=== PATIENT | male | born 1955 | race Caucasian/White ===

== ENCOUNTER 2024-05-20 21:55 | Inpatient (IN) | payer MEDICARE, OTHER ==
[~2024-05-20] VITALS: Ht 182.9 cm; Wt 100.7 kg
[2024-05-20] MEDS ORDERED: EMPA25TA PO (22:19)
[2024-05-20] MEDS ORDERED: PANT20TA2 PO (22:19)
[2024-05-20] MEDS ORDERED: SEMA1PEN SQ (22:19)
[2024-05-20] MEDS ORDERED: ASPI81TA31 PO (22:19)
[2024-05-20] MEDS ORDERED: ICOS1CAP PO (22:19)
[2024-05-20] MEDS ORDERED: LINA5TAB PO (22:19)
[2024-05-20] MEDS ORDERED: SIMV10TA2 PO (22:19)
[2024-05-20] MEDS ORDERED: AMLO-212 PO (22:19)
[2024-05-20] MEDS ORDERED: CHOL200074 PO (22:19)
[2024-05-20] MEDS ORDERED: DICL100G31 TP (22:19)
[2024-05-20] MEDS ORDERED: OLME20TA13 PO (22:19)
[2024-05-20] MEDS ORDERED: HYDR-3980 PO (22:19)
[2024-05-20] MEDS ORDERED: ENOX40DI9 SQ (22:19)
[2024-05-20] MEDS ORDERED: CLOB15CR10 TP (22:19)
[2024-05-20] MEDS ORDERED: IBUP-1955 PO (22:19)
[2024-05-20 22:27] VITALS: BP 137/72; TEMP 98.1; O2SAT 99
[2024-05-20 22:43] VITALS: BP 137/72; TEMP 98.1; O2SAT 99
[2024-05-21] MEDS ORDERED: Medication Not On Formulary EA (Pantoprazole Sodium (Protonix) 1 TAB) PO SCH (00:15)
[2024-05-21] MEDS: HYDROCODONE/APAP 10-325 MG TABLET PO PRN (02:04)
[2024-05-21] MEDS: PANTOPRAZOLE SODIUM 40 MG TABLET.DR PO SCH (06:40)
[2024-05-21 06:54] VITALS: BP 121/68; TEMP 97.8; O2SAT 97
[2024-05-21 08:05] VITALS: BP 122/66; TEMP 98; O2SAT 18
[2024-05-21 08:06] LABS: BASOPHILS % (AUTO) 0.2 % (0.0-2.0); EOSINOPHILS % (AUTO) 0.1 % (0.0-7.0); HEMATOCRIT 35.7 % (36.7-47.1); HEMOGLOBIN 12.4 g/dL (12.5-16.3); LYMPHOCYTES % (AUTO) 25.3 % (20.5-51.5); MEAN CORPUSCULAR HEMOGLOBIN 31.2 uug (23.8-33.4); MEAN CORPUSCULAR HGB CONC 35 g/dL (32.5-36.3); MEAN CORPUSCULAR VOLUME 89.9 fL (73.0-96.2); MONOCYTES % (AUTO) 13.2 % (0.0-11.0); NEUTROPHILS # (AUTO) 4.8 K/uL (1.8-8.9); NEUTROPHILS % (AUTO) 61.2 % (38.5-71.5); PLATELET COUNT (AUTO) 169 K/uL (152-348); RED BLOOD CELL COUNT(AUTO) 3.97 MIL/uL (4.06-5.63); RED CELL DISTRIBUTION WIDTH 13.1 % (12.1-16.2); WHITE BLOOD COUNT (AUTO) 7.8 K/uL (3.6-10.2)
[2024-05-21 08:18] LABS: CALCIUM 7.9 mg/dL (8.5-10.1); CREATININE 1.2 mg/dL (0.6-1.3)
[2024-05-21 08:33] LABS: DIFFERENTIAL COMMENT 1
[2024-05-21] MEDS ORDERED: Icosapent Ethyl (Vascepa) 1 GM) PO SCH (09:00)
[2024-05-21] MEDS ORDERED: Medication Not On Formulary EA (Cholecalciferol (Vitamin D3) (Vitamin D3) 1 CAP) PO SCH (09:00)
[2024-05-21] MEDS ORDERED: Medication Not On Formulary EA (Empagliflozin (Jardiance) 25 MG) PO SCH (09:00)
[2024-05-21] MEDS ORDERED: CLOBETASOL PROPIONATE 0.05% CREAM 15 GM TUBE TP SCH ×2 (09:00)
[2024-05-21] MEDS ORDERED: EMPAGLIFLOZIN 10 MG TABLET PO SCH ×2 (09:00)
[2024-05-21] MEDS: CHOLECALCIFEROL 1,000 UNIT TABLET PO SCH (09:21)
[2024-05-21] MEDS: OMEGA-3 FATTY ACIDS/FISH OIL CAPSULE PO SCH (09:21)
[2024-05-21] MEDS: ASPIRIN 81 MG TAB.CHEW PO SCH (09:21)
[2024-05-21] MEDS: LINAGLIPTIN 5 MG TABLET PO SCH (09:22)
[2024-05-21] MEDS: OXYCODONE HCL 5 MG TABLET PO PRN (09:22)
[2024-05-21] MEDS: LOSARTAN POTASSIUM 50 MG TABLET PO SCH (09:24)
[2024-05-21] MEDS: AMLODIPINE 5 MG TABLET PO SCH (09:24)
[2024-05-21] MEDS: ENOXAPARIN SODIUM 40 MG/0.4 ML DISP.SYRIN SQ SCH (09:28)
[2024-05-21] MEDS: JARDIANCE 25 MG PO SCH (12:44)
[2024-05-21 15:43] VITALS: TEMP 98.5
[2024-05-21] MEDS: VASCEPA 1 GM PO SCH (17:10)
[2024-05-21] MEDS: SIMVASTATIN 10 MG TABLET PO SCH (20:33)
[2024-05-21] MEDS: NORMAL SALINE NASAL 45 ML BOTTLE NS PRN (20:34)
[2024-05-21 21:33] VITALS: BP 105/61; TEMP 98.8; O2SAT 15
[2024-05-22 07:39] VITALS: BP 105/52; TEMP 98.6; O2SAT 15
[2024-05-22 11:22] VITALS: BP 109/66; TEMP 97.4; O2SAT 93
[2024-05-22] MEDS ORDERED: DEXTROSE 50% 50 ML DISP.SYRIN IV PRN (17:15)
[2024-05-22 19:25] VITALS: BP 106/66; TEMP 97.4; O2SAT 93
[2024-05-22 20:31] VITALS: BP 116/68; TEMP 98.1; O2SAT 92
[2024-05-22] MEDS: BLOOD SUGAR DIAGNOSTIC 1 EACH STRIP VI SCH (21:12)
[2024-05-22] MEDS: INSULIN REGULAR, HUMAN 1000 UNIT/10 ML VIAL SQ PRN (21:16)
[2024-05-22] MEDS: IBUPROFEN 600 MG TABLET PO PRN (23:09)
[2024-05-23 05:26] VITALS: BP 106/61; TEMP 97.7; O2SAT 90
[2024-05-23 08:00] VITALS: BP 104/65; TEMP 97.6; O2SAT 99
[2024-05-23 16:02] VITALS: BP 105/63; TEMP 97.6; O2SAT 95
[2024-05-23] MEDS: GLUCERNA SHAKE 237 ML CAN PO SCH (16:50)
[2024-05-23 20:41] VITALS: BP 105/55; TEMP 98.3; O2SAT 95
[2024-05-23] MEDS: MORPHINE SULFATE SR 15 MG TABLET.SA PO SCH (21:38)
[2024-05-24 06:48] VITALS: BP 106/60; TEMP 98.4; O2SAT 90
[2024-05-24] MEDS ORDERED: GLUCERNA SHAKE 237 ML CAN PO SCH (08:00)
[2024-05-24 08:07] VITALS: BP 103/57; TEMP 98; O2SAT 97
[2024-05-24] MEDS: GLUCERNA SHAKE 237 ML CAN PO SCH (08:19)
[2024-05-24 14:42] LABS: BASOPHILS % (AUTO) 0.2 % (0.0-2.0); DIFFERENTIAL COMMENT 0; EOSINOPHILS # (AUTO) 0.1 K/uL (0.0-0.7); EOSINOPHILS % (AUTO) 1.1 % (0.0-7.0); HEMATOCRIT 35.9 % (36.7-47.1); HEMOGLOBIN 12.3 g/dL (12.5-16.3); LYMPHOCYTES # (AUTO) 1.5 K/uL (0.8-4.8); LYMPHOCYTES % (AUTO) 18.9 % (20.5-51.5); MEAN CORPUSCULAR HEMOGLOBIN 30.6 uug (23.8-33.4); MEAN CORPUSCULAR HGB CONC 34 g/dL (32.5-36.3); MEAN CORPUSCULAR VOLUME 89.1 fL (73.0-96.2); MONOCYTES # (AUTO) 0.7 K/uL (0.1-1.30); NEUTROPHILS # (AUTO) 5.4 K/uL (1.8-8.9); NEUTROPHILS % (AUTO) 70.8 % (38.5-71.5); PLATELET COUNT (AUTO) 251 K/uL (152-348); RED BLOOD CELL COUNT(AUTO) 4.02 MIL/uL (4.06-5.63); RED CELL DISTRIBUTION WIDTH 13.1 % (12.1-16.2); WHITE BLOOD COUNT (AUTO) 7.7 K/uL (3.6-10.2)
[2024-05-24 14:57] LABS: ALBUMIN 2.6 g/dL (3.4-5.0); BILIRUBIN,TOTAL 0.8 mg/dL (0.2-1.0); CREATININE 1.1 mg/dL (0.6-1.3); POTASSIUM 4.2 mmol/L (3.5-5.1); TOTAL PROTEIN, SERUM 6.8 g/dL (6.4-8.2)
[2024-05-24 15:04] LABS: CALCIUM 8.2 mg/dL (8.5-10.1)
[2024-05-24 15:43] VITALS: BP 99/44; TEMP 97.2; O2SAT 97
[2024-05-24] MEDS: AMOXICILLIN-CLAVUL 875-125MG TABLET PO SCH (17:01)
[2024-05-24 20:33] VITALS: BP 101/56; TEMP 97.4; O2SAT 93
[2024-05-25 07:04] VITALS: BP 105/65; TEMP 97.7; O2SAT 95
[2024-05-25 07:44] VITALS: BP 112/62; TEMP 97.7; O2SAT 97
[2024-05-25] MEDS: LACTULOSE 20 G/30 ML LIQUID UDC PO SCH (08:20)
[2024-05-25] MEDS ORDERED: NALOXONE HCL 0.4 MG/ML AMPUL IV PRN (12:00)
[2024-05-25 15:27] VITALS: BP 134/56; TEMP 97.2; O2SAT 97
[2024-05-25 21:10] VITALS: BP 104/54; TEMP 98; O2SAT 91
[2024-05-25] MEDS: OXYCODONE HCL 10 MG TAB.SR.12H PO SCH (21:48)
[2024-05-25 22:47] VITALS: O2SAT 94
[2024-05-26 05:06] VITALS: BP 102/56; TEMP 97.7; O2SAT 92
[2024-05-26 08:00] VITALS: BP 109/62; TEMP 98.1; O2SAT 97
[2024-05-26 16:02] VITALS: BP 118/65; TEMP 97.9; O2SAT 96
[2024-05-26 20:06] VITALS: BP 108/56; TEMP 98.2; O2SAT 95
[2024-05-27 06:09] VITALS: BP 107/60; TEMP 97.6; O2SAT 96
[2024-05-27 08:00] VITALS: BP 113/57; TEMP 97.7; O2SAT 95
[2024-05-27 16:00] VITALS: BP 119/66; TEMP 97.8; O2SAT 94
[2024-05-27] MEDS: LINAGLIPTIN 5 MG TABLET PO SCH (17:02)
[2024-05-27 20:30] VITALS: BP 114/64; TEMP 98.1; O2SAT 93
[2024-05-28 06:59] VITALS: BP 136/77; TEMP 98.1; O2SAT 94
[2024-05-28 07:39] VITALS: BP 101/53; TEMP 97.4; O2SAT 96
[2024-05-28 16:00] VITALS: BP 112/57; TEMP 97.7; O2SAT 97
[2024-05-28 20:16] VITALS: BP 110/65; TEMP 98.3; O2SAT 94
[2024-05-29 07:05] VITALS: BP 122/67; TEMP 97.8; O2SAT 94
[2024-05-29 08:00] VITALS: BP 120/66; TEMP 98.9; O2SAT 94
[2024-05-29] MEDS ORDERED: SENNOSIDES 1 TABLET PO PRN (19:15)
[2024-05-29 20:00] VITALS: BP 106/60; TEMP 98; O2SAT 95
[2024-05-30] MEDS: IBUPROFEN 800 MG TABLET PO PRN (00:52)
[2024-05-30 06:58] VITALS: BP 121/60; TEMP 97.4; O2SAT 94
[2024-05-30 08:21] LABS: BASOPHILS % (AUTO) 0.3 % (0.0-2.0); EOSINOPHILS # (AUTO) 0.2 K/uL (0.0-0.7); EOSINOPHILS % (AUTO) 2.3 % (0.0-7.0); HEMATOCRIT 35.5 % (36.7-47.1); LYMPHOCYTES # (AUTO) 2.1 K/uL (0.8-4.8); LYMPHOCYTES % (AUTO) 24.5 % (20.5-51.5); MEAN CORPUSCULAR HEMOGLOBIN 30.3 uug (23.8-33.4); MEAN CORPUSCULAR HGB CONC 34 g/dL (32.5-36.3); MEAN CORPUSCULAR VOLUME 90.1 fL (73.0-96.2); MONOCYTES # (AUTO) 0.5 K/uL (0.1-1.30); MONOCYTES % (AUTO) 5.5 % (0.0-11.0); NEUTROPHILS # (AUTO) 5.7 K/uL (1.8-8.9); NEUTROPHILS % (AUTO) 67.4 % (38.5-71.5); PLATELET COUNT (AUTO) 402 K/uL (152-348); RED BLOOD CELL COUNT(AUTO) 3.94 MIL/uL (4.06-5.63); RED CELL DISTRIBUTION WIDTH 13.2 % (12.1-16.2); WHITE BLOOD COUNT (AUTO) 8.4 K/uL (3.6-10.2)
[2024-05-30 08:34] LABS: DIFFERENTIAL COMMENT 1
[2024-05-30 08:46] VITALS: BP 118/61; TEMP 97.6; O2SAT 95
[2024-05-30 09:03] LABS: ALBUMIN 2.6 g/dL (3.4-5.0); BILIRUBIN,TOTAL 0.5 mg/dL (0.2-1.0); CALCIUM 8.8 mg/dL (8.5-10.1); MAGNESIUM 2.4 mg/dL (1.8-2.4); PHOSPHOROUS 3.7 mg/dL (2.5-4.9); POTASSIUM 4.3 mmol/L (3.5-5.1); TOTAL PROTEIN, SERUM 6.7 g/dL (6.4-8.2)
[2024-05-30 10:06] LABS: THYROID STIMULATING HORMONE 1.643 mIU/mL (0.358-3.740)
[2024-05-30] MEDS ORDERED: DEXTROSE 50% 50 ML DISP.SYRIN IV PRN (17:00)
[2024-05-30 19:13] VITALS: BP 125/63; TEMP 97.6; O2SAT 92
[2024-05-30 20:39] VITALS: BP 115/53; TEMP 97.9; O2SAT 93
[2024-05-30] MEDS: BLOOD SUGAR DIAGNOSTIC 1 EACH STRIP VI SCH (22:05)
[2024-05-31 06:55] VITALS: BP 114/65; TEMP 97.7; O2SAT 92
[2024-05-31 08:00] VITALS: BP 130/69; TEMP 97.2; O2SAT 97
[2024-05-31 16:00] VITALS: BP 114/49; TEMP 97.6; O2SAT 97
[2024-05-31] MEDS: INSULIN REGULAR, HUMAN 1000 UNIT/10 ML VIAL SQ PRN (16:28)
[2024-05-31 20:43] VITALS: BP 129/66; TEMP 97.8; O2SAT 92
[2024-06-01 07:02] VITALS: BP 128/71; TEMP 97.7; O2SAT 94
[2024-06-01] MEDS: ASPIRIN EC 81 MG TABLET.DR PO SCH (08:33)
[2024-06-01] MEDS: RIVAROXABAN 15 MG TABLET PO SCH (08:35)
[2024-06-01 11:08] VITALS: BP 113/57; TEMP 97.9; O2SAT 94
[2024-06-01 18:34] VITALS: BP 124/64; TEMP 97.8; O2SAT 95
[2024-06-01 21:45] VITALS: BP 118/58; TEMP 97.8; O2SAT 97
[2024-06-02 06:09] VITALS: BP 138/60; TEMP 97.8; O2SAT 98
[2024-06-02 08:17] VITALS: BP 118/63; TEMP 98.2; O2SAT 96
[2024-06-02 08:44] VITALS: BP 118/63
== END 2024-06-02 13:40 | disposition home health service (06) | DRG 560 ==
PROVIDERS: ADMIT Physical Medicine & Rehabilitation Pain Medicine; ATTEND Physical Medicine & Rehabilitation Pain Medicine
DX: Z47.1 Aftercare following joint replacement surgery (principal); D68.59 Other primary thrombophilia; E44.0 Moderate protein-calorie malnutrition; E11.9 Type 2 diabetes mellitus without complications; Z96.642 Presence of left artificial hip joint; E78.5 Hyperlipidemia, unspecified; I10 Essential (primary) hypertension; R79.89 Other specified abnormal findings of blood chemistry; Z91.81 History of falling; D64.89 Other specified anemias; E88.09 Other disorders of plasma-protein metabolism, not elsewhere classified; K21.9 Gastro-esophageal reflux disease without esophagitis; R74.01 Elevation of levels of liver transaminase levels; R60.0 Localized edema
CPT/HCPCS: 36415; 71045; 73501; 83550; 83735; 84100; 84443; 85025; 97535-GO-CO; J1650; J1815